=== PATIENT | female | born 1960 | race Caucasian/White ===

== ENCOUNTER 2023-03-27 13:43 | Emergency (ER) | payer OTHER, SELFPAY ==
[2023-03-27] VITALS (24 sets, daily range): BP systolic 112–176; BP diastolic 63–89; PULSE 66–90; RESP 14–24; TEMP 36.2; O2SAT 95–100
--- NOTE | ~2023-03-27 | CT_ITS ---
EXAMINATION: CT abdomen pelvis w con DATE: 03/27/2023 17:23 INDICATION: left sided abdominal pain TECHNIQUE: Computed tomography (CT) of the abdomen and pelvis was performed with 100 mL Omnipaque-350 intravenous contrast. Automated exposure control and iterative reconstruction technique were employe d. The dose-length product was 463.73 mGy-cm. COMPARISON: None. FINDINGS: Lower thorax: Unremarkable Liver: Normal. Biliary/Gallbladder: Gallbladder is normal. No bile duct dilation. Pancreas: No mass or duct dilation. Spleen: Normal. Adrenals:No mass. Kidneys: Left upper kidney subcentimeter hypodensity, too small to characterize but most likely repre sents a cyst. No suspicious mass, stone, or hydronephrosis. GI tract: Distal esophageal and gastric wall edema. Mild, short segment pericolonic inflammatory quiroga ge at the junction of the distal descending colon and the proximal sigmoid colon. No abscess. Moderat e diverticulosis. No small or large bowel dilation. The appendix is not confidently visualized. Mesentery/Peritoneum: No ascites, mass, or free air. Retroperitoneum: No mass. Atherosclerotic abdominal aortic and/or arterial calcifications. Pelvis: Surgically absent uterus. Mild inflammatory change surrounding the urinary bladder. Soft Tissues: Soft tissues and body wall unremarkable. Bones: No acute osseous finding. IMPRESSION: Esophagitis/gastritis. Mild uncomplicated diverticulitis at the junction of the distal descending and proximal sigmoid colon . Possible mild cystitis. Reviewed, dictated and finalized at location K. IMPRESSION: Esophagitis/gastritis. Mild uncomplicated diverticulitis at the junction of the distal descending and proximal sigmoid colon. Possible mild cystitis.
--- NOTE | ~2023-03-27 | US_ITS ---
EXAMINATION: US venous doppler [facility] DATE: 03/27/2023 16:13 INDICATION: Left calf pain. TECHNIQUE: Grayscale ultrasound images without and with compression and Doppler ultrasound images of the left lower extremity veins were obtained. COMPARISON: None. FINDINGS: The visualized portions of left common femoral vein, profunda (deep) femoral vein, femoral vein, popl iteal vein, peroneal veins, posterior tibial veins, and greater saphenous vein outflow are patent. IMPRESSION: 1. No deep venous thrombosis. Reviewed, dictated and finalized at location A.
[2023-03-27 14:33] LABS: Basophils Absolute Auto 0.1 K/mm3 (0.0-0.1); Eosinophils Absolute Auto 0.2 K/mm3 (0-0.3); Eosinophils Percent Auto 3.8 % (0-4.4); Hematocrit 35.8 % (37.0-47.0); Hemoglobin 11.2 g/dL (12.0-15.0); Immature Granulocyte Absolute 0.01 K/mm3 (0.00-0.031); Immature Granulocyte Percent A 0.2 % (0-0.5); Lymphocytes Absolute Auto 1.55 K/mm3 (0.9-3.2); Lymphocytes Percent Auto 29.8 % (18.3-44.2); Mean Corpuscular HGB Conc 31.3 g/dl (32-36); Mean Corpuscular Hemoglobin 27.9 pg (26-34); Mean Corpuscular Volume 89.3 fl (80-100); Mean Platelet Volume 8.9 fl (7.4-10.4); Monocytes Absolute Auto 0.5 K/mm3 (0.1-0.6); Neutrophils Absolute Auto 2.9 K/mm3 (1.3-6.7); Neutrophils Percent Auto 56.2 % (45.5-73.1); Platelet Count Result 280 k/mm3 (150-375); Red Blood Count 4.01 M/mm3 (4.2-5.4); Red Cell Distribution Width 14.6 % (11.5-14.5); White Blood Count 5.2 K/mm3 (4.5-10.0)
[2023-03-27 14:44] LABS: Alanine Aminotransferase 22 U/L (6-35); Albumin Level 4.5 g/dL (3.5-5.1); Alkaline Phosphatase 83 U/L (38-126); Anion Gap 6 mmol/L (8-16); Aspartate Amino Transferase 37 U/L (14-36); Bilirubin,Total 0.3 mg/dL (0.2-1.3); Blood Urea Nitrogen 11 mg/dL (7-17); Calcium 9.4 mg/dL (8.4-10.2); Carbon Dioxide 30 mmol/L (22-30); Chloride 102 mmol/L (98-107); Estimated CRCL calculation 69 ml/min; Estimated Glomerular Filt Rate > 60; Glucose 109 mg/dL (65-110); Lipase 107 U/L (23-300); Potassium 3.7 mmol/L (3.4-5.0); Sodium 138 mmol/L (137-145)
[2023-03-27 15:06] LABS: Appearance Urine Clear (Clear); Bacteria Urine None Seen /hpf; Bilirubin Urine Negative (Negative); Blood Urine Negative (Negative); Color Urine Yellow (Yellow); Glucose Urine UA Negative (Negative); Ketones Urine Negative (Negative); Leukocyte Esterase Ur 1+ LEU/UL (Negative); Nitrate Urine Negative (Negative); Non Pathogenic Casts 0-2; Protein Urine Negative (Negative); RBC Urine 0-2 /hpf (0-2); Specific Grav Ur 1.009 (1.001-1.035); Squamous Epithelial Cell Urine Few /hpf (Few); Urobilinogen Urine 0.2 mg/dL (<2.0)
[2023-03-27 15:31] LABS: Add Urine Microscopic? YES
--- NOTE | 2023-03-27 18:05 | ED.ABDPAIN ---
HPI - Abdominal Pain General Chief Complaint: Abdominal Pain Stated Complaint: ab pain Time Seen by Provider: 03/27/23 14:49 History of Present Illness HPI narrative: Patient is a 62-year-old female who presents ER with complaints of abdominal pain as well as calf pain. She was diagnosed with diverticulitis 4 days ago after having symptoms for 3 days preceding that. She was started on Cipro and Flagyl. She began having some cramping in her left calf and her doctor switched her to Augmentin today. Due to the pain in the calf she would like the patient evaluated for DVT. No chest pain or chest pressure. No history of DVT in the past. No leg swelling. Patient does still have some mild left side abdominal discomfort but has not increased pain. Related Data Allergies Allergy/AdvReac Type Severity Reaction Status Date / Time No Known Allergies Allergy Verified 03/10/19 10:56 Review of Systems Review of Systems: All systems reviewed & are unremarkable except as noted in HPI and below Constitutional: Constitutional: Denies chills and Denies fever(s) Cardiovascular: Cardiovascular: Denies chest pain, Denies rapid heart rate and Denies radiating jaw, neck or arm pain Respiratory: Respiratory: Denies cough and Denies dyspnea Gastrointestinal: Gastrointestinal: Reports abdominal pain, Denies diarrhea, Denies nausea and Denies vomiting Genitourinary: Genitourinary: Denies nocturia, Denies dysuria and Denies flank pain Musculoskeletal: Musculoskeletal: Denies arthralgias, Denies joint swelling and Reports muscle cramps PMFSH Past Medical History Medical History (Updated 03/27/23 @ 18:12 by Harley Izquierdo MD) Diverticulitis Rheumatoid arthritis Surgical History Surgical History (Updated 03/27/23 @ 18:12 by Harley Izquierdo MD) No pertinent past surgical history Family History Family History (Updated 04/05/16 @ 23:19 by DOCTOR UNKNOWN) Father Hypertension Family history of diabetes mellitus in first degree relative Family history of coronary artery disease Mother Cerebrovascular accident Social History Social History Alcohol intake: never Exam Narrative: GENERAL: Well-appearing, well-nourished, and in no acute distress. HEAD: Normocephalic, atraumatic. EYES: PERRL and EOMI. ENT: Mucous membranes moist. CHEST: Clear to auscultation. No respiratory distress. HEART: Regular rate and rhythm. Normal peripheral pulses. ABDOMEN: Soft, mild left-sided discomfort without guarding, nondistended. EXTREMITIES: Normal range of motion. No edema. SKIN: Warm, dry, no rash. NEURO: Alert and oriented x3. PSYCH: Normal mood and affect. Course Course Emergency Course: Patient resting comfortably informed of results. Slight pressure when she urinates but no dysuria or. No bacteria seen and she is on antibiotics which should be enough. No evidence of DVT or intra-abdominal abscess. Discharge home. Vital Signs Vital signs: Vital Signs Temperature 97.2 F L 03/27/23 13:44 Pulse Rate 80 03/27/23 13:44 Respiratory Rate 16 03/27/23 13:44 Blood Pressure 176/63 H 03/27/23 13:44 Pulse Oximetry 100 03/27/23 13:44 Oxygen Delivery Room Air 03/27/23 13:44 Temperature 97.2 F L 03/27/23 13:44 Pulse Rate 77 03/27/23 17:31 Respiratory Rate 17 03/27/23 17:31 Blood Pressure 149/74 H 03/27/23 17:31 Pulse Oximetry 100 03/27/23 17:31 Oxygen Delivery Room Air 03/27/23 13:44 MDM - Abdominal Pain Lab Data 03/27/23 14:27 03/27/23 14:27 Labs: Lab Results 03/27/23 03/27/23 Range/Units 14:27 14:52 WBC 5.2 (4.5-10.0) K/mm3 RBC 4.01 L (4.2-5.4) M/mm3 Hgb 11.2 L (12.0-15.0) g/dL Hct 35.8 L (37.0-47.0) % MCV 89.3 (80-100) fl MCH 27.9 (26-34) pg MCHC 31.3 L (32-36) g/dl RDW 14.6 H (11.5-14.5) % Plt Count 280 (150-375) k/mm3 MPV 8.9 (7.4-10.4) fl Immature Gran % (Auto) 0.2 (0-0.5) % Neut
== END 2023-03-27 18:22 | disposition home or self-care (01) ==
PROVIDERS: Emergency Medicine; Emergency Provider Emergency Medicine; PCP Internal Medicine
DX: K57.92 Diverticulitis of intestine, part unspecified, without perforation or abscess without bleeding (principal); M79.662 Pain in left lower leg
CPT/HCPCS: 36415; 74177; 80053; 81001; 83690; 85025; 87086; 93971; 99284; Q9967

== ENCOUNTER 2023-07-10 12:01 | Outpatient (CLI) | payer OTHER, SELFPAY ==
[2023-07-10 13:00] LABS: Basophils Absolute Auto 0.1 K/mm3 (0.0-0.1); Basophils Percent Auto 1.1 % (0.2-1.2); Eosinophils Absolute Auto 0.2 K/mm3 (0-0.3); Eosinophils Percent Auto 3.7 % (0-4.4); Hemoglobin 11.9 g/dL (12.0-15.0); Immature Granulocyte Absolute 0.01 K/mm3 (0.00-0.031); Immature Granulocyte Percent A 0.2 % (0-0.5); Lymphocytes Absolute Auto 1.87 K/mm3 (0.9-3.2); Lymphocytes Percent Auto 32.9 % (18.3-44.2); Mean Corpuscular HGB Conc 30.5 g/dl (32-36); Mean Corpuscular Hemoglobin 27.6 pg (26-34); Mean Corpuscular Volume 90.5 fl (80-100); Mean Platelet Volume 9.4 fl (7.4-10.4); Monocytes Absolute Auto 0.6 K/mm3 (0.1-0.6); Monocytes Percent Auto 9.7 % (2.6-8.5); Neutrophils Percent Auto 52.4 % (45.5-73.1); Platelet Count Result 314 k/mm3 (150-375); Red Blood Count 4.31 M/mm3 (4.2-5.4); Red Cell Distribution Width 13.4 % (11.5-14.5); White Blood Count 5.7 K/mm3 (4.5-10.0)
[2023-07-10 13:10] LABS: Appearance Urine Clear (Clear); Bacteria Urine None Seen /hpf; Bilirubin Urine Negative (Negative); Blood Urine Negative (Negative); Color Urine Yellow (Yellow); Glucose Urine UA Negative (Negative); Ketones Urine Negative (Negative); Leukocyte Esterase Ur Trace LEU/UL (NEGATIVE); Nitrate Urine Negative (Negative); Non Pathogenic Casts 0-2; Protein Urine Negative (Negative); RBC Urine 0-2 /hpf (0-2); Specific Grav Ur 1.008 (1.001-1.035); Squamous Epithelial Cell Urine None seen /hpf (Few); Urobilinogen Urine 0.2 mg/dL (<2.0); WBC Urine 0-5 /hpf (0-3); pH Urine 6.5 (5.0-9.0)
[2023-07-10 13:14] LABS: Iron 118 ug/dL (37-170)
[2023-07-10 13:22] LABS: Add Urine Microscopic? YES
[2023-07-10 13:24] LABS: Alanine Aminotransferase 23 U/L (6-35); Alkaline Phosphatase 93 U/L (38-126); Amylase 84 U/L (30-110); Anion Gap 8 mmol/L (8-16); Aspartate Amino Transferase 38 U/L (14-36); Bilirubin,Total 0.5 mg/dL (0.2-1.3); Blood Urea Nitrogen 11 mg/dL (7-17); Carbon Dioxide 31 mmol/L (22-30); Chloride 97 mmol/L (98-107); Estimated Glomerular Filt Rate > 60; Glucose 94 mg/dL (65-110); Lipase 123 U/L (23-300); Potassium 3.4 mmol/L (3.4-5.0); Sodium 136 mmol/L (137-145)
[2023-07-10 13:26] LABS: Percent Iron Saturation 25 % (20-50)
[2023-07-10 13:50] LABS: Ferritin 8.12 ng/mL (11.1-264)
== END 2023-07-10 12:02 | disposition home or self-care (01) ==
LOC: ANHLAB 12:03
PROVIDERS: PCP Internal Medicine; Visit Provider Internal Medicine
DX: K21.9 Gastro-esophageal reflux disease without esophagitis (principal); K57.92 Diverticulitis of intestine, part unspecified, without perforation or abscess without bleeding
CPT/HCPCS: 36415; 80053; 81001; 82150; 82728; 83540; 83550; 83690; 85025

== ENCOUNTER 2024-01-27 00:21 | Day surgery (SDC) | payer OTHER, SELFPAY ==
[2024-01-20 12:09] VITALS: BMI 29.6
[2024-01-27 09:16] VITALS: BP 142/66; PULSE 70; RESP 20; TEMP 36.1; O2SAT 99; BMI 29.4
[2024-01-27] MEDS: LACTATED RINGERS 1,000 ML 150 ML IV CONT (09:18)
--- NOTE | 2024-01-27 09:34 | WPDANESEPPF ---
Anes - Initial Pre Proc Eval Procedure: Operation Date: 01/27/24 10:30 Proposed Procedures p Esophagogastroduodenoscopy - Haseeb Schultz MD Date/Time: 01/27/24 09:34 Surgeon: Haseeb Schultz MD Pre Op Diagnosis: GERD without esophagitis Patient Data Age: 63 Gender: F Height: 1.57 m Weight: 72.9 kg Last Vital Signs Temp 96.9 F L 01/27/24 09:16 Pulse 70 01/27/24 09:16 Resp 20 01/27/24 09:16 BP 142/66 H 01/27/24 09:16 Pulse Ox 99 01/27/24 09:16 O2 Del Method Room Air 01/27/24 09:16 Allergies Allergy/AdvReac Type Severity Reaction Status Date / Time ioversol [From [employer] 160] Allergy Intermediate Hives Verified 01/27/24 09:14 [email or web address] Allergy Intermediate neuropathy Verified 01/27/24 09:14 Home Medications Medication Instructions Recorded Confirmed Type cetirizine 5 mg-pseudoephedrine ER 1 tablet PO DAILY 01/20/24 01/27/24 History 120 mg tablet,extended release,12hr (Zyrtec-D) cholecalciferol (vitamin D3) 25 25 mcg PO DAILY 01/20/24 01/27/24 History mcg (1,000 unit) capsule (Vitamin D3) ferrous sulfate 137 mg (45 mg 137 mg PO DAILY 01/20/24 01/27/24 History iron) tablet,extended release (Slow Fe) folic acid 1 mg tablet 1 mg PO DAILY 01/20/24 01/27/24 History hydroxychloroquine 200 mg tablet 400 mg PO QPM 01/20/24 01/27/24 History pantoprazole 40 mg tablet,delayed 40 mg PO DAILY 01/20/24 01/27/24 History release sulfasalazine 500 mg tablet 500 mg PO BID 01/20/24 01/27/24 History tramadol 50 mg tablet 50 mg PO Q12H PRN Pain 01/20/24 01/27/24 History Patient hx anesthesia problems: none Family hx anesthesia problems: none Results Review: All pre-operative results and documents have been reviewed as part of the pre-operative evaluation. [facility] Past Medical History Medical History (Updated 03/28/23 @ 00:10 by Background Benigno) Diverticulitis Rheumatoid arthritis Surgical History Surgical History (Updated 03/27/23 @ 18:12 by Harley Izquierdo MD) No pertinent past surgical history Family History Family History (Updated 04/05/16 @ 23:19 by DOCTOR UNKNOWN) Father Hypertension Family history of diabetes mellitus in first degree relative Family history of coronary artery disease Mother Cerebrovascular accident Social History Social History Smoking packs per day: 1 Smoking cigarettes per day: 20.0 Years smoked: 45 Smoking pack-years: 45.00 Smoking status: Former smoker Tobacco type: cigarettes Alcohol intake: current Substance use: current Substance use type: marijuana Other substance usage details: GUMMIES WITH SM. AMT OF THC /CBD Living arrangements: with family Spiritual care concerns: No Anes - Eval Final PreProcedure Day of Procedure 01/27/24 09:34 Patient weight: normal Heart: regular rate and rhythm Lungs: clear to auscultation Airway: Mallampati scale class II Neurological: alert and oriented Last oral intake: >/= 8 hours ASA classification: II Emergent: no Anesthetic plan: proceed Anesthesia type and monitoring: general GIVS and standard monitoring Results Review: All pre-operative results and documents have been reviewed as part of the pre-operative evaluation. Informed Consent: The patient's anesthetic plan and its attendant risks and benefits were discussed with the patient/family/POA. Questions were solicited and answers provided to the satisfaction of the patient/family/POA.
--- NOTE | 2024-01-27 10:36 | SUR.PREOP ---
pt and made aware of delay in schedule due to inpatient procedure. voiced understanding.
--- NOTE | 2024-01-27 11:21 | PM.HPGS ---
History of Present Illness History of Present Illness Consent: Risks, benefits, and alternatives have been discussed and questions answered. Patient agrees to proceed with procedure. Chief complaint: GERD without esophagitis Narrative: Floresita Rod is a 63 year old female with low iron by her overlay operator (h/o RA)- advised to get EGD but denies overt gib, h/o gerd on pantoprazole. Review of Systems Review of Systems: All systems reviewed & are unremarkable except as noted in HPI and below PMFSH Past Medical History Medical History (Updated 01/27/24 @ 11:23 by Haseeb Schultz MD) Diverticulitis GERD (gastroesophageal reflux disease) Low iron stores Rheumatoid arthritis Surgical History Surgical History (Updated 03/27/23 @ 18:12 by Harley Izquierdo MD) No pertinent past surgical history Family History Family History (Updated 04/05/16 @ 23:19 by DOCTOR UNKNOWN) Father Hypertension Family history of diabetes mellitus in first degree relative Family history of coronary artery disease Mother Cerebrovascular accident Social History Social History Smoking packs per day: 1 Smoking cigarettes per day: 20.0 Years smoked: 45 Smoking pack-years: 45.00 Smoking status: Former smoker Tobacco type: cigarettes Alcohol intake: current Substance use: current Substance use type: marijuana Other substance usage details: GUMMIES WITH SM. AMT OF THC /CBD Living arrangements: with family Spiritual care concerns: No Meds Home Medications and Allergies Home Medications Medication Instructions Recorded Confirmed Type cetirizine 5 mg-pseudoephedrine ER 1 tablet PO DAILY 01/20/24 01/27/24 History 120 mg tablet,extended release,12hr (Zyrtec-D) cholecalciferol (vitamin D3) 25 25 mcg PO DAILY 01/20/24 01/27/24 History mcg (1,000 unit) capsule (Vitamin D3) ferrous sulfate 137 mg (45 mg 137 mg PO DAILY 01/20/24 01/27/24 History iron) tablet,extended release (Slow Fe) folic acid 1 mg tablet 1 mg PO DAILY 01/20/24 01/27/24 History hydroxychloroquine 200 mg tablet 400 mg PO QPM 01/20/24 01/27/24 History pantoprazole 40 mg tablet,delayed 40 mg PO DAILY 01/20/24 01/27/24 History release sulfasalazine 500 mg tablet 500 mg PO BID 01/20/24 01/27/24 History tramadol 50 mg tablet 50 mg PO Q12H PRN Pain 01/20/24 01/27/24 History Allergies Allergy/AdvReac Type Severity Reaction Status Date / Time ioversol [From [employer] 160] Allergy Intermediate Hives Verified 01/27/24 09:14 [email or web address] Allergy Intermediate neuropathy Verified 01/27/24 09:14 Vital Signs Vital Signs - 24 hr 01/27/24 09:16 Temperature 96.9 F L Pulse Rate 70 Respiratory Rate 20 Blood Pressure 142/66 H Pulse Oximetry 99 Oxygen Delivery Room Air Exam Const: General: comfortable and no acute distress HENMT: Face/Nose/Sinus: Normal nares present Eyes: General: appearance normal, both eyes and all related structures Neck: Neck: no JVD Resp: Auscultation: clear to auscultation bilaterally Cardio: Rate: regular rate Rhythm: regular rhythm GI: Inspection: non-distended GI Palp: Yes Soft to palpation Skin: General skin exam: normal color Neuro: General: gait normal Speech: normal speech Extrem: General: normal to inspection Psych: Mental Status: mental status grossly normal Assessment and Plan Assessment and plan (1) GERD (gastroesophageal reflux disease): Code(s): K21.9 - Gastro-esophageal reflux disease without esophagitis Status: Acute (2) Low iron stores: Code(s): R79.0 - Abnormal level of blood mineral Status: Acute Assessment and Plan: egd
[2024-01-27 11:32] VITALS: BP 118/53; PULSE 76; RESP 26; O2SAT 100
[2024-01-27 11:42] VITALS: BP 136/59; PULSE 73; RESP 25; O2SAT 100
[2024-01-27 11:52] VITALS: BP 140/66; PULSE 76; RESP 29; O2SAT 95
== END 2024-01-27 11:55 | disposition home or self-care (01) ==
PROVIDERS: PCP Internal Medicine; Visit Provider Internal Medicine Gastroenterology
PROC: 0DJ08ZZ Inspection of Upper Intestinal Tract, Via Natural or Artificial Opening Endoscopic (ICD-10-PCS; CPT 43235; principal; 2024-01-27 10:30)
DX: K29.50 Unspecified chronic gastritis without bleeding (principal); K21.9 Gastro-esophageal reflux disease without esophagitis; D50.9 Iron deficiency anemia, unspecified; M06.9 Rheumatoid arthritis, unspecified; Z87.891 Personal history of nicotine dependence; F12.90 Cannabis use, unspecified, uncomplicated
CPT/HCPCS: 43239; 88305; J2001; J2704; J7120

== ENCOUNTER 2024-07-08 08:05 | Outpatient (CLI) | payer OTHER, SELFPAY ==
--- NOTE | ~2024-07-08 | CT_ITS ---
CT Scan of the Chest without Contrast: Clinical Indication: Lung cancer screening, nicotine dependence Technique: Contiguous sections were acquired throughout the chest without intravenous contrast. Dose reduction technique was used on this scan by utilizing automated exposure control and iterative recon struction technique. The dose-length product (DLP) was 82.16 mGy-cm. Findings: There is no evidence of any significant mediastinal, hilar or axillary lymphadenopathy. Coronary deepika ry calcifications are present. There is no evidence of pleural or pericardial effusion. The lungs are clear. No pulmonary nodules or infiltrates are noted. There are minimal chronic interst itial changes in the right upper lobe. Images through the upper abdomen reveal no abnormalities. Impression: Lung RADS 2: Benign appearance. 12 month follow-up screening CT advised. Reviewed, dictated and finalized at [facility]. Impression: Lung RADS 2: Benign appearance. 12 month follow-up screening CT advised.
== END 2024-07-08 08:06 | disposition home or self-care (01) ==
PROVIDERS: PCP Internal Medicine; Visit Provider Internal Medicine
DX: Z12.2 Encounter for screening for malignant neoplasm of respiratory organs (principal); Z87.891 Personal history of nicotine dependence
CPT/HCPCS: 71271

== ENCOUNTER 2024-08-17 13:15 | Outpatient (CLI) | payer OTHER, SELFPAY ==
--- NOTE | ~2024-08-17 | MM_ITS ---
EXAMINATION: MM screening sara BI w amber HISTORY: Screening TECHNIQUE: Craniocaudal and mediolateral oblique 3-D tomosynthesis images were obtained and synthetic 2-D images were generated. CAD analysis was submitted and interpreted. COMPARISON: No prior mammogram is available for comparison at this institution. BREAST PARENCHYMAL COMPOSITION: Not dense: There are scattered areas of fibroglandular density. FINDINGS: There are bilateral asymmetries. There are no suspicious calcifications or architectural di stortion. There are asymmetries laterally in the right breast on CC view as well as the upper central aspect of both breasts, posterior third stomach. IMPRESSION: 1. Bilateral breast asymmetries. 2. Additional mammographic views and possible breast ultrasound are recommended. BI-RADS Category 0: Incomplete: Needs additional imaging evaluation. Reviewed, dictated and finalized at location B. ETING SALES SUPERVISOR IMPRESSION: 1. Bilateral breast asymmetries. 2. Additional mammographic views and possible breast ultrasound are recommended . BI-RADS Category 0: Incomplete: Needs additional imaging evaluation.
--- NOTE | ~2024-08-17 | DEXA_ITS ---
Bone Density Report Name: ANAYA CONKLIN Age: 63 Sex: Female Ethnicity: White Date of : 1960 Indication: postmenopausal; screening for osteoporosis; hysterectomy; rheumatoid arthritis; Referring Provider: JUNIOR HI Study: Bone densitometry was performed. Exam Date: August 17, 2024 Accession number: [id number] Bone Density: Region BMD T-score Z-score Classification AP Spine(L1-L4) 0.862 -1.7 -0.1 Osteopenia Femoral Neck (Left) 0.632 -2.0 -0.5 Osteopenia Total Hip (Left) 0.855 -0.7 0.4 Normal Femoral Neck (Right) 0.603 -2.2 -0.8 Osteopenia Total Hip (Right) 0.845 -0.8 0.3 Normal Femoral Neck Mean 0.618 -2.1 -0.7 Osteopenia Total Hip Mean 0.850 -0.8 0.3 Normal World Health Organization criteria for BMD impression classify patients as: Normal (T-score at or above -1.0), Osteopenia (T-score between -1.0 and -2.5), or Osteoporosis (T-score at or below -2.5). 10-year Fracture Risk(1): Major Osteoporotic Fracture 13% Hip Fracture 2.1% Reported Risk Factors: [place] (), Neck BMD=0.603, BMI=30.3, rheumatoid arthritis (1) FRAX(R) Version 3.08. Fracture probability calculated for an untreated patient. Fracture probability may be lower if the patient has received treatment. Clinical Information Provided by Patient: Has rheumatoid arthritis Has used the following medications: Vitamin D Has the following medical conditions: Hysterectomy Patient maximum height was 62 Menopause Age: 35 No regular weight bearing exercise Drinks caffeinated beverages Onset of menses at age 15 Number of children 1 Impression: The patient has low bone mass, based on the Right Femoral Neck T-score. Discussion: BONE DENSITY IS LOW AT ONE OR MORE SKELETAL SITES. This patient's lowest T-score is low at one or more skeletal sites. It meets the World Health Organization's (WHO) criteria for ?low bone mass? (T-score between -1.0 and -2.5). The patient's 10-year risk of fracture as calculated by FRAX is less than the threshold where pharmacological therapy is recommended by the National Osteoporosis Foundation (NOF). However, all treatment decisions require clinical judgment and consideration of individual patient factors, including patient preferences, comorbidities, previous drug use, risk factors not captured in the FRAX model (e.g., frailty, falls, vitamin D deficiency, increased bone turnover, interval significant decline in bone density) and possible under or overestimation of fracture risk by FRAX. The patient should follow a healthful lifestyle (good nutrition with adequate calcium and vitamin D, and appropriate weight-bearing exercise). Follow-Up: Consider repeating this study in 2 to 3 years to reassess this patient's status, or sooner if there is some new clinical indication. Reported by: LUCY on 08/17/2024 1:48:00 PM. Reviewed, dictated and finalized at location A.
== END 2024-08-17 13:16 | disposition home or self-care (01) ==
LOC: CHSIMG 13:16
PROVIDERS: PCP Internal Medicine; Visit Provider Internal Medicine
DX: Z12.31 Encounter for screening mammogram for malignant neoplasm of breast (principal); Z78.0 Asymptomatic menopausal state; M85.89 Other specified disorders of bone density and structure, multiple sites; R92.8 Other abnormal and inconclusive findings on diagnostic imaging of breast
CPT/HCPCS: 77063; 77067; 77080

== ENCOUNTER 2024-09-06 08:50 | Outpatient (CLI) | payer OTHER, SELFPAY ==
--- NOTE | ~2024-09-06 | MMUS_ITS ---
EXAMINATION: MM diagnostic sara BI w amber, US breast RT limited HISTORY: 63-year-old woman with a personal history of left breast lumpectomy for benign disease prese nts with bilateral asymmetries diagnostic evaluation TECHNIQUE: Additional spot compression 3-D tomosynthesis images of the bilateral proximal were perfor med and synthetic 2-D images were generated. CAD analysis was submitted and interpreted. High resolut ion limited right breast ultrasound was performed. COMPARISON: 08/17/2024 BREAST PARENCHYMAL COMPOSITION:Not Dense. There are scattered areas of fibroglandular density. FINDINGS: MAMMOGRAPHIC FINDINGS: Left breast asymmetry effaces with spot compression, likely representing a summation artifact (overla pping fibroglandular tissues). The right breast asymmetry persists with spot compression for which focused ultrasound will be perfor med. ULTRASOUND: Sonographic evaluation of the right breast was performed assessing grayscale appearance and color Dop pler flow. The 12:00 position of the right breast approximately 5 cm from sclerotic focus of decreased echogenic ity measuring 7.6 x 5.7 x 6.7 mm indeterminate sonographic features for which ultrasound-guided biops y is recommended. Sonographic evaluation of the remainder of the right breast demonstrates benign fibroglandular elemen ts without a cystic or solid lesion of concern. IMPRESSION: Indeterminate findings the 12:00 position of the right breast approximately 5 cm from the nipple, for which ultrasound-guided biopsy is recommended. BI-RADS category 4a, suspicious findings, ultrasound-guided Biopsy is recommended. Reviewed, dictated and finalized at location A. L PRESS OPERATOR IMPRESSION: Indeterminate findings the 12:00 position of the right breast approximately 5 c m from the nipple, for which ultrasound-guided biopsy is recommended. BI-RADS category 4a, suspicious findings, ultrasound-guided Biopsy is recommend ed.
== END 2024-09-06 08:51 | disposition home or self-care (01) ==
LOC: CHSIMG 08:53
PROVIDERS: PCP Internal Medicine; Visit Provider Internal Medicine
DX: R92.8 Other abnormal and inconclusive findings on diagnostic imaging of breast (principal)
CPT/HCPCS: 76642; 77062; 77066; G0279

== ENCOUNTER 2024-09-20 07:23 | Outpatient (CLI) | payer OTHER, SELFPAY ==
--- NOTE | ~2024-09-20 | MMUS_ITS ---
EXAMINATION: 1. US breast biopsy RT w image 2. MM post biopsy diagnostic RT DATE: 09/20/2024 08:54 INDICATION: Right breast mass. TECHNIQUE: The procedure including the risks, benefits, and alternatives was discussed with the patie nt. Risks discussed included bleeding and infection. The patient understood the risks and agreed to p roceed. The skin of the right breast was prepped and draped in usual sterile fashion. Anesthetic was administered with 1% lidocaine at the skin and 1% lidocaine with epinephrine in the deeper tissue. A 10-gauge vacuum-assisted core biopsy needle was then used to obtain 4 core biopsy specimens under c ontinuous sonographic guidance. A Mammotome HydroMARK butterfly marker was placed under sonographic g uidance The entry site was cleaned and dressed. There were no immediate complications. A two-view mammogram was obtained to document marker placement. FINDINGS: Ultrasound images demonstrate the needle in an 8 mm mass in the right breast at 12:00, 5 cm from the nipple. Breast composition: There are scattered areas of fibroglandular density. Mammogram: There is a marker in the right breast asymmetry at 12:00. IMPRESSION: 1. Successful ultrasound-guided vacuum-assisted biopsy of an 8 mm right breast mass at 12:00 with pos t procedure mammogram for marker placement. Reviewed, dictated and finalized at location A. LINING MACHINE FEEDER IMPRESSION: 1. Successful ultrasound-guided vacuum-assisted biopsy of an 8 mm right breast mass at 12:00 with post procedure mammogram for marker placement.
== END 2024-09-20 07:24 | disposition home or self-care (01) ==
PROVIDERS: PCP Internal Medicine; Visit Provider Internal Medicine
DX: D24.1 Benign neoplasm of right breast (principal); N64.89 Other specified disorders of breast
CPT/HCPCS: 19083; 77065; 88305; A4648